=== PATIENT | female | born 1940 | race Caucasian/White ===

== ENCOUNTER 2018-10-20 11:15 | Emergency (ER) | payer OTHER ==
[~2018-10-20] VITALS: Ht 160 cm; Wt 64.8 kg
--- NOTE | 2018-10-20 11:49 | NUR ---
PT AMBULATED TO BR WITH SBA TO PROVIDE UA. URINE COLLECTED/ORDERED PER PROTOCOL/SENT TO LAB. PT PLACED ON HEART MONITOR, BP CUFF, PULSE OX. WARM BLANKET PROVIDED.
[2018-10-20 12:27] LABS: MICROSCOPIC INDICATED
[2018-10-20 12:31] LABS: CULTURE INDICATED? YES
[2018-10-20 12:37] LABS: ALBUMIN 3.7 g/dL (3.4-5.0); ANION GAP 6 mmol/L (5-15); BASOPHILS # (AUTO) 0.05 x10^3/uL (0-0.1); BASOPHILS % (AUTO) 1 % (0-1); CALCIUM 8.9 mg/dL (8.5-10.1); CHLORIDE 109 mmol/L (98-107); EOSINOPHILS % (AUTO) 4 % (1-7); LYMPHOCYTES # (AUTO) 1.35 x10^3/uL (1-3.4); LYMPHOCYTES % (AUTO) 17 % (22-44); MD NO; MEAN CORPUSCULAR HEMOGLOBIN 34.1 pg (27.0-34.8); MEAN CORPUSCULAR HGB CONC 34.2 g/dL (32.4-35.8); MEAN CORPUSCULAR VOLUME 99.6 fL (80-100); MEAN PLATELET VOLUME 9.8 fL (7.4-10.4); MONOCYTES # (AUTO) 0.59 x10^3/uL (0.2-0.8); MONOCYTES % (AUTO) 8 % (2-9); NEUTROPHILS # (AUTO) 5.62 x10^3/uL (1.8-6.8); NEUTROPHILS % (AUTO) 71 % (42-75); PLATELET COUNT 218 x10^3/uL (130-400); RED BLOOD COUNT 4.42 x10^6/uL (3.82-5.3); RED CELL DISTRIBUTION WIDTH 13.2 % (9.6-15.2)
[2018-10-20 12:42] LABS: ALANINE AMINOTRANSFERASE 28 U/L (12-78); ALKALINE PHOSPHATASE 68 U/L (45-117); BILIRUBIN,TOTAL 0.5 mg/dL (0.2-1.0); CREATININE 0.71 mg/dL (0.55-1.02); TOTAL PROTEIN 6.3 g/dL (6.4-8.2)
--- NOTE | 2018-10-20 13:06 | NUR ---
ALL RESULTS BACK, PT FOR RECHECK.
[2018-10-20 14:34] VITALS: BP 128/84
== END 2018-10-20 14:38 | disposition home or self-care (01) ==
LOC: ED 13:43
DX: K80.70 Calculus of gallbladder and bile duct without cholecystitis without obstruction (principal)
CPT/HCPCS: 36415; 76700; 80053; 81001; 83690; 85025; 87086; 99284

== ENCOUNTER 2018-11-04 19:56 | Emergency (ER) | payer OTHER ==
[~2018-11-04] VITALS: Ht 160 cm; Wt 60.0 kg
[~2018-11-04 19:56] MED LIST: ACID1TAB3 PO; ALPR1TAB2 PO; AMOX1TAB64 PO; ASPI-515 PO; ATOR-2 PO; HYDR-3241 PO; HYDR-3307 PO; LISI-167 PO; METO25TA35 PO; NITR0.4T28 SL; PANT40TA5 PO
[2018-11-04 20:05] VITALS: BP 136/80
--- NOTE | 2018-11-04 20:45 | NUR ---
Roula diez in [facility] - 11/04/18 at 2114 by JONATHAN PT TO ROOM FROM [facility]
--- NOTE | 2018-11-04 20:46 | NUR ---
NO ANSWER WHEN CALLED FROM LOBBY, NOT IN RADIOLOGY AND NOT IN LAB, NEXT PT ROOMED
--- NOTE | 2018-11-04 21:07 | NUR ---
called for room, no answer, lobby checked.
--- NOTE | 2018-11-04 21:50 | NUR ---
NO ANSWER WHEN CALLED FROM [facility]
== END 2018-11-04 22:00 | disposition left against medical advice (07) ==
LOC: ED 21:54
DX: R10.9 Unspecified abdominal pain (principal)
CPT/HCPCS: 93005; 99283

== ENCOUNTER 2018-12-17 10:35 | Inpatient (IN) | payer OTHER ==
[~2018-12-17] VITALS: Ht 160 cm; Wt 58.0 kg
[~2018-12-17 10:35] MED LIST changes: +CEFOTETAN 2 GM ONE; +PROPOFOL 10 MG/ML, 20ML ONE; +ROCURONIUM 10MG/ML,5ML ONE; +SUCCINYLCHOLINE 20 MG/ML, 10ML ONE; +SUGAMMADEX 200 MG/2 ML IVPush ONE; +hydrALAzine 20 MG/ML, 1ML ONE
--- NOTE | 2018-12-17 11:22 | NUR ---
PT TO ROOM FROM LOBBY VIA W/C. PT WAS TO HAVE HAD GALLBLADDER REMOVAL IN SEPTEMBER. MOVED BACK TO AND THEN RETURNED TO LIVE IN . PT WITH C/O 'PAIN, WEIGHT LOSS, CANT EAT. THE TASTE OF EVERYTHING THAT GOES INTO MY MOUTH IS REALLY SOUR AND BITTER"
--- NOTE | 2018-12-17 11:27 | NUR ---
DR MCGRAW AT BEDSIDE TO EVAL PT
[2018-12-17] MEDS ORDERED: SODIUM CHLORIDE 0.9% 1,000 ML IV ONE (11:33)
[2018-12-17 11:51] LABS: BASOPHILS # (AUTO) 0.02 x10^3/uL (0-0.1); BASOPHILS % (AUTO) 0 % (0-1); EOSINOPHILS # (AUTO) 0.11 x10^3/uL (0-0.4); EOSINOPHILS % (AUTO) 1 % (1-7); LYMPHOCYTES # (AUTO) 1.71 x10^3/uL (1-3.4); LYMPHOCYTES % (AUTO) 21 % (22-44); MD NO; MEAN CORPUSCULAR HEMOGLOBIN 34.4 pg (27.0-34.8); MEAN CORPUSCULAR HGB CONC 33.1 g/dL (32.4-35.8); MEAN PLATELET VOLUME 10.3 fL (7.4-10.4); MONOCYTES # (AUTO) 0.61 x10^3/uL (0.2-0.8); MONOCYTES % (AUTO) 7 % (2-9); NEUTROPHILS # (AUTO) 5.88 x10^3/uL (1.8-6.8); NEUTROPHILS % (AUTO) 71 % (42-75); PLATELET COUNT 201 x10^3/uL (130-400); RED BLOOD COUNT 4.91 x10^6/uL (3.82-5.3)
[2018-12-17] MEDS ORDERED: ONDANSETRON 2MG/ML, 2ML ONE ×2 (11:53→21:17)
[2018-12-17] MEDS ORDERED: HYDROmorphone 1 MG/ML, 1ML VIAL ONE (11:54)
--- NOTE | 2018-12-17 11:58 | NUR ---
PT ATTEMPTED TO PROVIDE URINE SPECIMAN, UNABLE TO AT THIS TIME. PT RETURNED TO ROOM. PT MEDICATED FOR NAUSEA AND 7/10 PAIN ORDERED. IV INFUSING WITHOUT REDNESS/SWELLING. U/S TECH AT BEDSIDE.
[2018-12-17 11:59] LABS: ALBUMIN 4.1 g/dL (3.4-5.0); ANION GAP 5 mmol/L (5-15); CALCIUM 9.2 mg/dL (8.5-10.1); CHLORIDE 106 mmol/L (98-107)
[2018-12-17] MEDS ORDERED: SODIUM CHLORIDE FLUSH 10ML SYR IVF ONE (12:00)
[2018-12-17] MEDS ORDERED: HYDROmorphone 2 MG/ML, 1ML IVPush PRN (12:00)
[2018-12-17] MEDS ORDERED: SODIUM CHLORIDE 0.9% 1,000ML IVBOLUS ONE (12:00)
[2018-12-17] MEDS ORDERED: ONDANSETRON 2MG/ML, 2ML IVPush ONE (12:00)
[2018-12-17 12:02] LABS: ALANINE AMINOTRANSFERASE 25 U/L (12-78); ALKALINE PHOSPHATASE 84 U/L (45-117); BILIRUBIN,TOTAL 0.8 mg/dL (0.2-1.0); CREATININE 0.77 mg/dL (0.55-1.02); TOTAL PROTEIN 7.1 g/dL (6.4-8.2)
[2018-12-17 13:34] LABS: CULTURE INDICATED? YES; MICROSCOPIC INDICATED
[2018-12-17] MEDS ORDERED: SODIUM CHLORIDE FLUSH 10ML SYR IVF PRN (15:00)
[2018-12-17] MEDS ORDERED: CEFTRIAXONE PMX 1GM/50ML 50 ML IVPB ONE (15:00)
[2018-12-17] MEDS ORDERED: CEFTRIAXONE PMX 1GM/50ML 50 ML ONE (15:26)
--- NOTE | 2018-12-17 16:22 | NUR ---
Report called to Veronica SONI on surgical, floor ready for pt transport.
[2018-12-17 17:18] VITALS: BP 141/54
[2018-12-17] MEDS ORDERED: LACTATED RINGERS 1,000 ML IV SCH (18:00)
[2018-12-17] MEDS ORDERED: morphine SULFATE ORAL.CONC 20 MG/ML PO PRN (18:00)
[2018-12-17] MEDS ORDERED: MORPHINE SULFATE 4 MG/ML, 1ML ONE (18:08)
[2018-12-17] MEDS ORDERED: MORPHINE SULFATE 4 MG/ML, 1ML IVPush PRN (18:30)
[2018-12-17] MEDS ORDERED: BUPIVACAINE/EPI 0.5% 1:200K ONE (20:17)
[2018-12-17] MEDS ORDERED: FENTANYL PF 100 MCG/2ML ONE ×2 (20:21→21:16)
[2018-12-17] MEDS ORDERED: MIDAZOLAM 1 MG/ML, 2ML ONE (20:21)
[2018-12-17] MEDS ORDERED: LABETALOL 5MG/ML, 20ML IV PRN (21:00)
[2018-12-17] MEDS ORDERED: OXYcodone 5 MG/5 ML ORAL.SOL UDC PO PRN (21:00)
[2018-12-17] MEDS ORDERED: LORazepam 2 MG/ML, 1ML IVPush PRN (21:00)
[2018-12-17] MEDS ORDERED: ONDANSETRON 2MG/ML, 2ML IV PRN ×2 (21:00→23:45)
[2018-12-17] MEDS ORDERED: METOPROLOL 1 MG/ML, 5ML IV PRN (21:00)
[2018-12-17] MEDS ORDERED: hydrALAzine 20 MG/ML, 1ML IV PRN (21:00)
[2018-12-17] MEDS ORDERED: HYDROmorphone 2 MG/ML, 1ML ONE (21:17)
[2018-12-17] MEDS: FENTANYL PF 100 MCG/2ML IV PRN ×2 (21:22→21:31)
[2018-12-17] MEDS: HYDROmorphone 2 MG/ML, 1ML IVPush PRN ×2 (21:24→21:59)
[2018-12-17] MEDS ORDERED: LORazepam 2 MG/ML, 1ML ONE (21:35)
[2018-12-17] MEDS ORDERED: OXYcodone 5 MG/5 ML ORAL.SOL UDC ONE (22:37)
[2018-12-17 22:55] VITALS: BP 113/49
[2018-12-18 00:22] VITALS: BP 100/54
[2018-12-18] MEDS: OXYcodone/APAP 5/325MG TABLET PO PRN ×5 (01:45→23:34)
[2018-12-18 03:59] VITALS: BP 100/55
[2018-12-18 07:07] VITALS: BP 99/59
[2018-12-18] MEDS: SODIUM CHLORIDE FLUSH 3ML SYRINGE IVF SCH ×2 (09:00→21:00)
[2018-12-18] MEDS ORDERED: ONDANSETRON 4 MG TABLET PO PRN (10:00)
[2018-12-18 13:29] VITALS: BP 125/61
[2018-12-18] MEDS ORDERED: OXYC-302 PO (14:44)
[2018-12-18] MEDS ORDERED: POLY17PO5 PO (14:45)
[2018-12-18 19:58] VITALS: BP 137/57
[2018-12-19 01:09] VITALS: BP 138/48
[2018-12-19] MEDS: OXYcodone/APAP 5/325MG TABLET PO PRN ×2 (03:39→09:10)
[2018-12-19 05:19] VITALS: BP 159/69
[2018-12-19 06:51] VITALS: BP 137/57
[2018-12-19] MEDS: SODIUM CHLORIDE FLUSH 3ML SYRINGE IVF SCH (09:00)
== END 2018-12-19 10:00 | disposition home or self-care (01) | DRG 418 ==
LOC: OR 14:58 → EDIP 14:59 → OR 15:35 → 4NOR 17:11
PROVIDERS: ADMIT Colon & Rectal Surgery; ATTEND Colon & Rectal Surgery
PROC: 0FT44ZZ Resection of Gallbladder, Percutaneous Endoscopic Approach (ICD-10-PCS; principal; 2018-12-17 17:00)
DX: K80.10 Calculus of gallbladder with chronic cholecystitis without obstruction (principal); N30.00 Acute cystitis without hematuria; K21.9 Gastro-esophageal reflux disease without esophagitis; I10 Essential (primary) hypertension; E78.00 Pure hypercholesterolemia, unspecified; F17.200 Nicotine dependence, unspecified, uncomplicated; F41.1 Generalized anxiety disorder; Z90.49 Acquired absence of other specified parts of digestive tract; B96.20 Unspecified Escherichia coli [E. coli] as the cause of diseases classified elsewhere; Z87.442 Personal history of urinary calculi; I25.2 Old myocardial infarction; Z95.5 Presence of coronary angioplasty implant and graft; Z86.74 Personal history of sudden cardiac arrest; Z79.899 Other long term (current) drug therapy; Z88.1 Allergy status to other antibiotic agents; Z88.5 Allergy status to narcotic agent; Z88.8 Allergy status to other drugs, medicaments and biological substances
CPT/HCPCS: 36415; 76700; 80053; 81001; 83690; 85025; 87040; 87077; 87086; 87186; 88304; 93005; 99285; C1729; G0378; J0696; J1170; J2250; J2405; J2704; J3010; J0330; J0360; J2060; J2270; J3490; J7030; J7120

== ENCOUNTER 2018-12-19 12:47 | Emergency (ER) | payer OTHER ==
[~2018-12-19 12:47] MED LIST changes: -CEFOTETAN 2 GM ONE; +OXYC-302 PO; +POLY17PO5 PO; -PROPOFOL 10 MG/ML, 20ML ONE; -ROCURONIUM 10MG/ML,5ML ONE; -SUCCINYLCHOLINE 20 MG/ML, 10ML ONE; -SUGAMMADEX 200 MG/2 ML IVPush ONE; -hydrALAzine 20 MG/ML, 1ML ONE
--- NOTE | 2018-12-19 13:16 | NUR ---
Assumed care of patient. Patient was DC'd this AM after cholecystectomy. C/O ABD pain after sitting in car for about 30min. Denies N/V. Passing gas. Placed on NIBP and pulse ox. at bedside. Patient initially refusing blood work, but after a conversation with the nurse the patient is agreeable to the procedure.
[2018-12-19 13:43] LABS: ANION GAP 7 mmol/L (5-15); CALCIUM 8.6 mg/dL (8.5-10.1); CHLORIDE 108 mmol/L (98-107)
--- NOTE | 2018-12-19 13:50 | NUR ---
CBC needs to be redrawn. Patient refusing redraw. MD aware.
--- NOTE | 2018-12-19 13:56 | NUR ---
Refusing IV and chest xray. at bedside.
[2018-12-19 13:57] VITALS: BP 146/85
[2018-12-19] MEDS ORDERED: MORPHINE SULFATE 4 MG/ML, 1ML IVPush PRN (14:00)
[2018-12-19] MEDS ORDERED: ONDANSETRON 2MG/ML, 2ML IVPush ONE (14:00)
[2018-12-19 14:12] LABS: ALANINE AMINOTRANSFERASE 48 U/L (12-78); ALBUMIN 3.3 g/dL (3.4-5.0)
[2018-12-19 14:13] LABS: ALKALINE PHOSPHATASE 73 U/L (45-117); BILIRUBIN,TOTAL 0.6 mg/dL (0.2-1.0); TOTAL PROTEIN 6.7 g/dL (6.4-8.2)
--- NOTE | 2018-12-19 14:13 | NUR ---
Left AMA and signed paperwork. Ambulatory with a steady gait. Taken out in wheelchair per patient request.
== END 2018-12-19 14:14 | disposition left against medical advice (07) ==
LOC: ED 14:00
DX: R10.13 Epigastric pain (principal); R10.11 Right upper quadrant pain; F17.210 Nicotine dependence, cigarettes, uncomplicated; E78.00 Pure hypercholesterolemia, unspecified; K21.9 Gastro-esophageal reflux disease without esophagitis; I25.2 Old myocardial infarction; E78.5 Hyperlipidemia, unspecified; I10 Essential (primary) hypertension; Z90.49 Acquired absence of other specified parts of digestive tract
CPT/HCPCS: 36415; 80053; 83690; 93005; 99284

== ENCOUNTER 2018-12-20 06:08 | Observation (INO) | payer OTHER ==
[~2018-12-20] VITALS: Ht 160 cm; Wt 59.0 kg
--- NOTE | 2018-12-20 06:32 | NUR ---
received patient from triage, covered with stool. cleaned. linen changes. warm blankets provided.
--- NOTE | 2018-12-20 06:35 | NUR ---
IV placed. blood draw. medicated for pain.
--- NOTE | 2018-12-20 06:47 | NUR ---
report to ZACHARIAH Jj.
[2018-12-20] MEDS ORDERED: MORPHINE SULFATE 4 MG/ML, 1ML ONE ×2 (06:49→07:44)
[2018-12-20] MEDS: MORPHINE SULFATE 4 MG/ML, 1ML IVPush PRN ×2 (06:51→08:03)
--- NOTE | 2018-12-20 06:52 | NUR ---
Report from Jim SONI. Pt medicated per MAR, denies other needs.
[2018-12-20 07:15] LABS: ALANINE AMINOTRANSFERASE 45 U/L (12-78); ALBUMIN 3.7 g/dL (3.4-5.0); ANION GAP 7 mmol/L (5-15); CALCIUM 9.1 mg/dL (8.5-10.1); CHLORIDE 106 mmol/L (98-107); CREATININE 0.49 mg/dL (0.55-1.02)
[2018-12-20 07:17] LABS: ALKALINE PHOSPHATASE 81 U/L (45-117); BILIRUBIN,TOTAL 1.1 mg/dL (0.2-1.0)
--- NOTE | 2018-12-20 07:19 | NUR ---
Pt in CT.
[2018-12-20] MEDS ORDERED: DIPH,PERTUSS(ACELL),TET VAC/PF 0.5 ML IM-VACC ONE (07:25)
[2018-12-20] MEDS ORDERED: OMNIPAQUE 350 MG/ML, 100ML BOTTLE ONE (07:30)
[2018-12-20 07:34] LABS: INTERNATIONAL NORMALIZED RATIO 1.03 (0.93-1.1); PROTHROMBIN TIME 10.8 Seconds (9.6-11.5)
--- NOTE | 2018-12-20 08:02 | NUR ---
Pt medicated for continued pain per SEP. Pt assisted to bedside commode to void and back to bed. Pt unable to provide stool sample at this time.
[2018-12-20 08:26] LABS: BASOPHILS # (AUTO) 0.02 x10^3/uL (0-0.1); BASOPHILS % (AUTO) 0 % (0-1); EOSINOPHILS # (AUTO) 0.07 x10^3/uL (0-0.4); EOSINOPHILS % (AUTO) 1 % (1-7); LYMPHOCYTES % (AUTO) 11 % (22-44); MD NO; MEAN CORPUSCULAR HGB CONC 33.4 g/dL (32.4-35.8); MEAN CORPUSCULAR VOLUME 101.8 fL (80-100); MONOCYTES # (AUTO) 0.68 x10^3/uL (0.2-0.8); MONOCYTES % (AUTO) 8 % (2-9); NEUTROPHILS # (AUTO) 6.81 x10^3/uL (1.8-6.8); NEUTROPHILS % (AUTO) 80 % (42-75); PLATELET COUNT 169 x10^3/uL (130-400); RED CELL DISTRIBUTION WIDTH 13.4 % (9.6-15.2)
--- NOTE | 2018-12-20 09:20 | NUR ---
Pt given ice chips per request.
[2018-12-20] MEDS ORDERED: LORazepam 2 MG/ML, 1ML ONE (09:27)
--- NOTE | 2018-12-20 09:29 | NUR ---
Pt anxious, restless. Discussed with Dr. Delaney. Orders received for Ativan. Pt medicated per order, denies other needs.
[2018-12-20] MEDS ORDERED: LORazepam 2 MG/ML, 1ML IVPush ONE (09:30)
--- NOTE | 2018-12-20 09:59 | NUR ---
Pt appears more calm after medications. Pt resting in bed with eyes closed, resp even and unlabored, NADN.
--- NOTE | 2018-12-20 10:24 | NUR ---
Pt resting in bed with eyes closed, resp even and unlabored, NADN.
--- NOTE | 2018-12-20 10:41 | NUR ---
Hospital bed ordered for pt.
--- NOTE | 2018-12-20 11:28 | NUR ---
[facility] at bedside to evaluate pt for admission.
--- NOTE | 2018-12-20 11:44 | NUR ---
Pt placed in hospital bed and positioned for comfort. Pt provided ice chips per request. Lights in room dimmed and door closed per request. Pt denies other needs.
[2018-12-20] MEDS ORDERED: SODIUM CHLORIDE 0.9% 1,000 ML IV SCH (11:48)
--- NOTE | 2018-12-20 11:49 | NUR ---
Pt states she is still unable to provide a stool sample.
[2018-12-20] MEDS ORDERED: ACETAMINOPHEN 325 MG TABLET PO PRN (12:00)
[2018-12-20] MEDS ORDERED: ONDANSETRON 2MG/ML, 2ML IVPush PRN (12:00)
[2018-12-20] MEDS ORDERED: LISINOPRIL 10 MG TABLET ONE (12:51)
[2018-12-20] MEDS ORDERED: METOPROLOL TARTRATE 25 MG TABLET ONE (12:51)
[2018-12-20] MEDS: LISINOPRIL 10 MG TABLET PO SCH ×2 (13:05→21:05)
[2018-12-20] MEDS: METOPROLOL TARTRATE 25 MG TABLET PO SCH ×2 (13:05→21:04)
--- NOTE | 2018-12-20 13:08 | NUR ---
Pt medicated per MAR, denies other needs.
--- NOTE | 2018-12-20 13:56 | NUR ---
TASK RN: PT TO BSC. PT REQUESTED RN TO LEAVE ROOM AT THIS TIME.
--- NOTE | 2018-12-20 14:00 | NUR ---
task rn: pt back to bed without assistance. pt states "I DIDN'T CALL BECAUSE I CAN DO IT. I HOOKED MYSELF UP TO THE STUFF TOO." NO ACUTE DISTRESS NOTED. PT EDUCATED REGARDING ASSISTANCE AND RISKS. PT VERBALIZED UNDERSTANDING. NO NEEDS RQUESTED AT TIS TIME.
--- NOTE | 2018-12-20 15:05 | NUR ---
Pt resting in bedwith eyes closed, resp even and unlabored, NADN.
[2018-12-20 16:36] VITALS: BP 162/70
[2018-12-20 16:55] LABS: CLOSTRIDIUM DIFFICILE ANTIGEN NEGATIVE; CLOSTRIDIUM DIFFICILE TOXIN NEGATIVE (Negative)
[2018-12-20 19:20] VITALS: BP 148/70
[2018-12-20] MEDS: ASPIRIN 81 MG TABLET EC PO SCH (21:00)
[2018-12-20] MEDS ORDERED: ATORVASTATIN 80 MG TABLET PO SCH (21:00)
[2018-12-21 01:14] VITALS: BP 138/68
[2018-12-21] MEDS ORDERED: OXYcodone/APAP 5/325MG TABLET PO ONE (03:30)
[2018-12-21] MEDS ORDERED: LOPERAMIDE 2 MG CAPSULE PO ONE (03:30)
[2018-12-21 04:49] LABS: ANION GAP 6 mmol/L (5-15); CALCIUM 8.4 mg/dL (8.5-10.1); CHLORIDE 109 mmol/L (98-107); CREATININE 0.51 mg/dL (0.55-1.02)
[2018-12-21 04:59] LABS: BASOPHILS # (AUTO) 0.01 x10^3/uL (0-0.1); BASOPHILS % (AUTO) 0 % (0-1); EOSINOPHILS % (AUTO) 3 % (1-7); LYMPHOCYTES # (AUTO) 1.17 x10^3/uL (1-3.4); LYMPHOCYTES % (AUTO) 19 % (22-44); MD NO; MEAN CORPUSCULAR HEMOGLOBIN 34.2 pg (27.0-34.8); MEAN CORPUSCULAR HGB CONC 32.9 g/dL (32.4-35.8); MEAN PLATELET VOLUME 10.3 fL (7.4-10.4); MONOCYTES # (AUTO) 0.68 x10^3/uL (0.2-0.8); MONOCYTES % (AUTO) 11 % (2-9); NEUTROPHILS # (AUTO) 4.21 x10^3/uL (1.8-6.8); NEUTROPHILS % (AUTO) 67 % (42-75); PLATELET COUNT 172 x10^3/uL (130-400); RED BLOOD COUNT 3.88 x10^6/uL (3.82-5.3); RED CELL DISTRIBUTION WIDTH 12.6 % (9.6-15.2)
[2018-12-21 06:50] VITALS: BP 166/64
[2018-12-21] MEDS ORDERED: PANTOPROZOLE 40MG TABLET PO SCH (09:00)
[2018-12-21 09:39] LABS: ALBUMIN 2.8 g/dL (3.4-5.0); BILIRUBIN, DIRECT 0.1 mg/dL (0.1-0.2)
[2018-12-21 09:41] LABS: BILIRUBIN,INDIRECT 0.7 mg/dL (0.0-2.0); BILIRUBIN,TOTAL 0.8 mg/dL (0.2-1.0); TOTAL PROTEIN 5.6 g/dL (6.4-8.2)
[2018-12-21] MEDS: LISINOPRIL 10 MG TABLET PO SCH (09:42)
[2018-12-21] MEDS: ASPIRIN 81 MG TABLET EC PO SCH (09:42)
[2018-12-21] MEDS: METOPROLOL TARTRATE 25 MG TABLET PO SCH (09:42)
== END 2018-12-21 15:58 | disposition home or self-care (01) ==
LOC: ED 08:42 → INTOOBSV 09:06 → EDIP 09:06 → 3NE 15:58
PROVIDERS: ADMIT Internal Medicine; ATTEND Internal Medicine
DX: R19.7 Diarrhea, unspecified (principal); R53.1 Weakness; D53.9 Nutritional anemia, unspecified; I10 Essential (primary) hypertension; I25.10 Atherosclerotic heart disease of native coronary artery without angina pectoris; F41.1 Generalized anxiety disorder; E78.5 Hyperlipidemia, unspecified; E78.00 Pure hypercholesterolemia, unspecified; I25.2 Old myocardial infarction; Z76.5 Malingerer [conscious simulation]; Z86.59 Personal history of other mental and behavioral disorders; Z90.49 Acquired absence of other specified parts of digestive tract; Z91.19 Patient's noncompliance with other medical treatment and regimen; Z79.899 Other long term (current) drug therapy; Z79.82 Long term (current) use of aspirin
CPT/HCPCS: 36415; 74177; 80048; 80053; 80076; 83690; 83735; 84100; 85025; 85610; 85730; 87324; 96361; 96374; 96375; 96376; 97161; 97165; 99284; G0378; J2060; J2270; J7030; Q9967

== ENCOUNTER 2018-12-25 13:46 | Emergency (ER) | payer OTHER ==
[~2018-12-25] VITALS: Ht 162.6 cm; Wt 54.1 kg
--- NOTE | 2018-12-25 14:20 | NUR ---
PT C/O CONTINUED DIARRHEA AND WEAKNESS SINCE CHOLECYSTECTOMY ONE WEEK AGO. PT ALSO REPORTS RASH TO FACE AND TRUNK. PT DENIES ANY DIFFICULTY BREATHING.
[2018-12-25] MEDS ORDERED: SODIUM CHLORIDE 0.9%, 500ML IVBOLUS ONE (14:30)
[2018-12-25] MEDS ORDERED: DIPHENHYDRAMINE 50 MG/ML, 1ML IM ONE (14:30)
[2018-12-25] MEDS ORDERED: DIPHENHYDRAMINE 50 MG/ML, 1ML ONE (14:31)
[2018-12-25 15:20] VITALS: BP 128/86
== END 2018-12-25 15:23 | disposition home or self-care (01) ==
LOC: ED 15:18
DX: R19.7 Diarrhea, unspecified (principal); R53.1 Weakness; Z00.00 Encounter for general adult medical examination without abnormal findings; E78.5 Hyperlipidemia, unspecified; K21.9 Gastro-esophageal reflux disease without esophagitis; F41.1 Generalized anxiety disorder; I11.0 Hypertensive heart disease with heart failure; I50.9 Heart failure, unspecified; F17.200 Nicotine dependence, unspecified, uncomplicated; I25.2 Old myocardial infarction; Z90.89 Acquired absence of other organs; Z90.49 Acquired absence of other specified parts of digestive tract
CPT/HCPCS: 96372; 99283; J1200; J7040